=== PATIENT | female | born 1985 | race African-American/Black ===

== ENCOUNTER 2020-07-04 10:00 | Inpatient (IN) | payer BC ==
[2020-07-06] MEDS: ELECTROLYTE-148 SOLN 1,000 ML IV SCH ×2 (06:30→08:30)
[2020-07-06 07:40] VITALS: BMI 37.7
[2020-07-06] MEDS ORDERED: CITRIC ACID/SODIUM CITRATE 30 ML UNIT-DOSE CUP PO ONE (08:07)
[2020-07-06] MEDS ORDERED: morphine SULFATE/PF 0.5 MG/ML (2cc Syringe - QUVA) ONE (08:17)
[2020-07-06] MEDS ORDERED: SODIUM CHLORIDE 0.9% P/F 10 ML VIAL IJ ONE ×2 (08:19→08:45)
[2020-07-06] MEDS ORDERED: ONDANSETRON 4 MG/2 ML VIAL ONE (08:19)
[2020-07-06] MEDS ORDERED: OXYTOCIN 10 UNITS/ML VIAL ONE ×2 (08:19→09:23)
[2020-07-06] MEDS ORDERED: KETOROLAC TROMETHAMINE 30 MG/1 ML VIAL ONE (08:19)
[2020-07-06] MEDS ORDERED: ceFAZolin SODIUM 1 GM VIAL ONE (08:19)
[2020-07-06] MEDS ORDERED: morphine SULFATE/PF 0.5 MG/ML (2cc Syringe - QUVA) EP ONE (08:35)
[2020-07-06] MEDS ORDERED: ePHEDrine SULFATE 50 MG/1 ML AMPULE ONE (08:42)
[2020-07-06] MEDS ORDERED: LIDOCAINE HCL/PF 2% SDV 5ML VIAL ONE (08:46)
[2020-07-06] MEDS: OXYTOCIN 20 UNITS in 0.9% NS 20 UNIT/1,000 ML INFUS.BAG IV SCH (09:30)
[2020-07-06] MEDS ORDERED: METHYLERGONOVINE MALEATE 0.2 MG/1 ML AMP IM PRN (09:47)
[2020-07-06] MEDS ORDERED: WITCH HAZEL 50% (TUCKS) 40 PAD/JAR PAD TP PRN (09:47)
[2020-07-06] MEDS ORDERED: oxyCODONE HCL 5 MG TABLET PO PRN (09:47)
[2020-07-06] MEDS ORDERED: IBUPROFEN 800 MG/8 ML IJ IVPB PRN (09:47)
[2020-07-06] MEDS ORDERED: ONDANSETRON 4 MG/2 ML VIAL IVPUSH PRN (09:57)
[2020-07-06] MEDS ORDERED: ACETAMINOPHEN 325 MG TABLET (FP) PO PRN (09:57)
[2020-07-06] MEDS ORDERED: IBUPROFEN 600 MG TABLET (FP) PO PRN (09:57)
[2020-07-06] MEDS ORDERED: ACETAMINOPHEN 1000 MG/100 ML VIAL (NON FORMULARY) IVPB ONE (10:00)
[2020-07-06 10:07] LABS: CORD BASE EXCESS -4.7 mmol/L (0-2); CORD HCO3 23.8 mmHg (20-29); CORD PCO2 58.1 mmHg (30-78); CORD pH 7.23 (7.14-7.44)
[2020-07-06 10:10] LABS: CORD BASE EXCESS -3.5 mmol/L (0-2); CORD HCO3 21.5 mmHg (20-29); CORD PCO2 38.9 mmHg (30-78); CORD pH 7.36 (7.14-7.44)
[2020-07-06] MEDS: PRENATAL VITAMINS W/ FOLIC ACID TABLET (FP) PO SCH (13:10)
[2020-07-06] MEDS: FERROUS SO4 325 MG TABLET (FP) PO SCH (17:24)
[2020-07-07 08:32] LABS: BASO % 0.4 % (0-2.0); EOS % 1.3 % (0-4.5); HEMATOCRIT 37.8 % (32.4-45.2); HEMOGLOBIN 12.2 GM/dL (10.7-15.3); LYMPH % 15.2 % (8-40); MCH 28.1 pg (25.7-33.7); MCHC 32.2 g/dl (32.0-36.0); MEAN CELL VOLUME 87.1 fl (80-96); MEAN PLT VOLUME 11.3 fl (7.5-11.1); MONO % 6.3 % (3.8-10.2); NEUT % 76.8 % (42.8-82.8); PLATELET COUNT 93 K/MM3 (134-434); RBC 4.34 M/mm3 (3.60-5.2); RDW 15.6 % (11.6-15.6); WHITE BLOOD COUNT 9.1 K/mm3 (4.0-10.0)
[2020-07-07] MEDS: oxyCODONE HCL 5 MG TABLET PO PRN ×2 (08:52→23:35)
[2020-07-07] MEDS: ACETAMINOPHEN 325 MG TABLET (FP) PO PRN ×2 (08:52→15:40)
[2020-07-07] MEDS: FERROUS SO4 325 MG TABLET (FP) PO SCH ×2 (08:53→18:13)
[2020-07-07] MEDS: SIMETHICONE 80 MG TAB.CHEW (FP) PO PRN ×3 (08:53→23:34)
[2020-07-07] MEDS: PRENATAL VITAMINS W/ FOLIC ACID TABLET (FP) PO SCH (09:00)
[2020-07-07] MEDS ORDERED: BISACODYL 10 MG SUPP.RECT RC PRN (09:49)
[2020-07-07] MEDS: IBUPROFEN 600 MG TABLET (FP) PO PRN (23:34)
[2020-07-08] MEDS: SIMETHICONE 80 MG TAB.CHEW (FP) PO PRN ×3 (08:27→22:23)
[2020-07-08] MEDS: IBUPROFEN 600 MG TABLET (FP) PO PRN ×4 (08:27→22:26)
[2020-07-08] MEDS: ACETAMINOPHEN 325 MG TABLET (FP) PO PRN ×3 (08:27→17:46)
[2020-07-08] MEDS: FERROUS SO4 325 MG TABLET (FP) PO SCH ×2 (08:27→17:27)
[2020-07-08] MEDS: PRENATAL VITAMINS W/ FOLIC ACID TABLET (FP) PO SCH (09:50)
[2020-07-08] MEDS: OXYTOCIN 20 UNITS in 0.9% NS 20 UNIT/1,000 ML INFUS.BAG IV SCH (10:04)
[2020-07-08] MEDS: oxyCODONE HCL 5 MG TABLET PO PRN (22:24)
[2020-07-09] MEDS: ACETAMINOPHEN 325 MG TABLET (FP) PO PRN ×2 (01:13→11:14)
[2020-07-09] MEDS: oxyCODONE HCL 5 MG TABLET PO PRN (01:14)
[2020-07-09] MEDS: FERROUS SO4 325 MG TABLET (FP) PO SCH ×2 (08:13→19:07)
[2020-07-09 09:21] LABS: BASO % 0.6 % (0-2.0); EOS % 4.2 % (0-4.5); HEMOGLOBIN 11.6 GM/dL (10.7-15.3); LYMPH % 35.7 % (8-40); MCH 28.4 pg (25.7-33.7); MCHC 32.2 g/dl (32.0-36.0); MEAN CELL VOLUME 88.1 fl (80-96); MEAN PLT VOLUME 11.7 fl (7.5-11.1); MONO % 8.2 % (3.8-10.2); NEUT % 51.3 % (42.8-82.8); PLATELET COUNT 102 K/MM3 (134-434); RBC 4.09 M/mm3 (3.60-5.2); RDW 15.5 % (11.6-15.6); WHITE BLOOD COUNT 4.9 K/mm3 (4.0-10.0)
[2020-07-09] MEDS: PRENATAL VITAMINS W/ FOLIC ACID TABLET (FP) PO SCH (10:00)
[2020-07-09] MEDS: IBUPROFEN 600 MG TABLET (FP) PO PRN (11:15)
[2020-07-09] MEDS: SIMETHICONE 80 MG TAB.CHEW (FP) PO PRN (11:16)
[2020-07-09 13:26] VITALS: BP 128/79; PULSE 63; TEMP 98
== END 2020-07-09 19:00 | disposition home or self-care (01) | DRG 787 ==
LOC: JLDR 07-06 06:30 → J3W 07-06 11:10
PROVIDERS: ADMIT Obstetrics & Gynecology; ATTEND Obstetrics & Gynecology
PROC: 10D00Z1 Extraction of Products of Conception, Low, Open Approach (ICD-10-PCS; principal; 2020-07-06)
DX: O34.211 Maternal care for low transverse scar from previous cesarean delivery (principal); O99.12 Other diseases of the blood and blood-forming organs and certain disorders involving the immune mechanism complicating childbirth; N85.8 Other specified noninflammatory disorders of uterus; O99.214 Obesity complicating childbirth; D69.6 Thrombocytopenia, unspecified; O34.13 Maternal care for benign tumor of corpus uteri, third trimester; Z3A.39 39 weeks gestation of pregnancy; Z37.0 Single live birth
CPT/HCPCS: 36415; 36600; 82803; 85025; 88307-TC